=== PATIENT | male | born 1965 | race American Indian/Alaskan Native ===

== ENCOUNTER 2018-08-22 20:42 | Emergency (ER) | payer OTHER ==
[2018-08-22 21:02] VITALS: BMI 34.7
--- NOTE | 2018-08-22 21:24 | ED PDOC ---
Arrival/HPI <[place] - Last Filed: 08/22/18 21:34> - General Historian: Patient - History of Present Illness Narrative History of Present Illness (Text): 08/22/18 21:20 CC: worsening cough in past 10 days. HPI: 53 yo male w/ PMH of HTN, DM1, CAD comes to ED for evaluation of worsening cough in past 10 days. Patient states that he has this cough for a prolonged period of time ( says 2 years). Patient states he felt he had a fever today but recorded a temperature of 99. Patient reports that last night his coughing was so severe he had a 5 minute episode of vomiting. Today, when he was driving over to hospital once again he had such severe cough that he began to vomit. Denies sob, hernandez, chest pain, n/v, constipation or diarrhea, and dysuria. Rec ently had medication of valsartan switched to lisinopril. Time/Duration: > week Symptom Onset: Gradual Symptom Course: Worsening Severity Level: 8 Activities at Onset: Rest Context: Sitting <Joycelyn Oseguera - Last Filed: 08/22/18 22:48> - General Chief Complaint: Flu-like Symptoms Time Seen by Provider: 08/22/18 20:48 Past Medical History - Cardiac Hx Hypertension: Yes - Endocrine/Metabolic Hx Diabetes Mellitus Type 1: Yes - Psychiatric Hx Substance Use: No <Joycelyn Osegeura - Last Filed: 08/22/18 22:48> Family/Social History Family/Social History: No Known Family HX Smoking Status: Never Smoked Hx Alcohol Use: No Hx Substance Use: No <Joycelyn Oseguera - Last Filed: 08/22/18 22:48> Allergies/Home Meds <[place] - Last Filed: 08/22/18 21:34> <Joycelyn Oseguera - Last Filed: 08/22/18 22:48> Allergies/Adverse Reactions: Allergies No Known Allergies Allergy (Verified 08/22/18 21:02) Home Medications: Home Meds Medication Instructions Recorded Confirmed Lisinopril [Zestril] 20 mg PO DAILY 08/22/18 08/22/18 Review of Systems - Review of Systems Constitutional: Normal. absent: Fatigue, Weight Change Eyes: Normal ENT: Normal Respiratory: Cough, Sputum. absent: SOB, Wheezing Cardiovascular: Normal. absent: Chest Pain, Palpitations, Edema, HERNANDEZ Gastrointestinal: Vomiting. absent: Normal, Abdominal Pain, Stool Changes, Constipation, Diarrhea, Nausea Genitourinary Male: Normal. absent: Dysuria, Frequency Musculoskeletal: Normal. absent: Arthralgias, Myalgias Skin: Normal. absent: Rash, Pruritis, Skin Lesions Endocrine: Normal Hemo/Lymphatic: Normal Psychiatric: Normal <Joycelyn Oseguera - Last Filed: 08/22/18 22:48> Physical Exam Vital Signs Reviewed: Yes Temperature: Afebrile Blood Pressure: Normal Pulse: Tachycardic Respiratory Rate: Normal Appearance: Positive for: Well-Appearing, Non-Toxic, Comfortable Pain Distress: None Mental Status: Positive for: Alert and Oriented X 3 - Systems Exam Head: Present: Atraumatic, Normocephalic Pupils: Present: PERRL Extroacular Muscles: Present: EOMI Conjunctiva: Present: Normal Mouth: Present: Moist Mucous Membranes Neck: Present: Normal Range of Motion. No: Meningeal Signs, Paraspinal Tenderness, JVD Respiratory/Chest: Present: Clear to Auscultation, Good Air Exchange. No: Respiratory Distress, Accessory Muscle Use, Rhonchi Cardiovascular: Present: Normal S1, S2, Tachycardic. No: Murmurs Abdomen: Present: Normal Bowel Sounds. No: Tenderness, Distention, Peritoneal Signs Upper Extremity: Present: Normal Inspection. No: Cyanosis, Edema Lower Extremity: Present: Normal Inspection. No: Edema Neurological: Present: GCS=15, CN II-XII Intact, Speech Normal Skin: Present: Warm, Dry, Normal Color. No: Rashes Psychiatric: Present: Alert, Oriented x 3, Normal Insight, Normal Concentration <Joycelyn Oseguera - Last Filed: 08/22/18 22:48> Medical Decision Making ED Course and Treatment: Impression: Pt seen and evaluated with lead medical technologist. Aware and agree with HPI, clinical findings, plan, and management. Pt, whose past medical history includes hypertension, diabetes, and CAD, presented for worsening cough, subjective fever, and post-tussive vomiting. Plan: -- Labs -- CXR -- Reassess and disposition - RAD Interpretation Radiology Orders: 08/22/18 21:19 CXR (PA/LAT) [CHEST TWO VIEWS (PA/LAT)] [RAD] Stat <[place] - Last Filed: 08/22/18 21:34> ED Course and Treatment: 08/22/18 21:27 Impression 53 yo male w/ PMH of HTN, DM1, CAD comes to ED for evaluation of worsening cough in past 10 days. Patient states that he has this cough for a prolonged period of time ( says 2 years). Plan -CBC -CMP -Chest Xray Prior Visits No prior visits Progress Notes pending blood work and imaging Re-evaluation Time: 22:30 Reassessment Condition: Unchanged - Lab Interpretations Lab Results: 08/22/18 08/22/18 21:40 21:40 WBC 9.7 RBC 4.96 Hgb 14.4 Hct 42.2 MCV 85.1 MCH 29.0 MCHC 34.1 RDW 13.7 Plt Count 289 MPV 9.6 Neut % (Auto) 61.6 Lymph % (Auto) 27.6 Montgomery % (Auto) 7.6 H Eos % (Auto) 3.0 Baso % (Auto) 0.2 Lymph # (Auto) 2.7 Montgomery # (Auto) 0.7 H Eos # (Auto) 0.3 Baso # (Auto) 0.02 Absolute Neuts (auto) 6.00 Sodium 142 Potassium 4.5 Chloride 103 Carbon Dioxide 28 Anion Gap 15 BUN 16 Creatinine 0.9 Est GFR ( Amer) > 60 Est GFR (Non-Af Amer) > 60 Random Glucose 142 H Calcium 9.9 Total Bilirubin 0.3 AST 45 ALT 38 Alkaline Phosphatase 94 Total Protein 8.1 Albumin 4.3 Globulin 3.8 Albumin/Globulin Ratio 1.1 08/22/18 21:40 08/22/18 21:40 Lab Results 08/22/18 21:40: Sodium 142, Potassium 4.5, Chloride 103, Carbon Dioxide 28, Anion Gap 15, BUN 16, Creatinine 0.9, Est GFR ( Amer) > 60, Est GFR (Non- Af Amer) > 60, Random Glucose 142 H, Calcium 9.9, Total Bilirubin 0.3, AST 45, ALT 38, Alkaline Phosphatase 94, Total Protein 8.1, Albumin 4.3, Globulin 3.8, Albumin/Globulin Ratio 1.1 08/22/18 21:40: WBC 9.7, RBC 4.96, Hgb 14.4, Hct 42.2, MCV 85.1, MCH 29.0, MCHC 34.1, RDW 13.7, Plt Count 289, MPV 9.6, Neut % (Auto) 61.6, Lymph % (Auto) 27.6, Montgomery % (Auto) 7.6 H, Eos % (Auto) 3.0, Baso % (Auto) 0.2, Lymph # (Auto) 2.7, Montgomery # (Auto) 0.7 H, Eos # (Auto) 0.3, Baso # (Auto) 0.02, Absolute Neuts (auto) 6.00 Interpretation: All labs normal - EKG Interpretation Interpreted by ED Physician: Yes Type: 12 lead EKG <Joycelyn Oseguera - Last Filed: 08/22/18 22:48> - PA / OWNER ORAL SURGEON / Resident Statement STEPHANIE has reviewed & agrees with the documentation as recorded. / has examined the patient and agrees with the treatment plan. <[place] Arizmendi - Last Filed: 08/22/18 21:34> Disposition/Present on Arrival <Mich Arizmendi - Last Filed: 08/22/18 21:34> - Present on Arrival Any Indicators Present on Arrival: No History of DVT/PE: No History of Uncontrolled Diabetes: No Urinary Catheter: No History of Decub. Ulcer: No History Surgical Site Infection Following: None - Disposition Have Diagnosis and Disposition been Completed?: Yes Disposition Time: 22:47 Patient Plan: Discharge <Jocyelyn Oseguera - Last Filed: 08/22/18 22:48> - Disposition Diagnosis: Cough Condition: FAIR Additional Instructions: 1. Patient will need to followup with primary medical doctor for possible switching of blood pressure due to extended cough history 2. Patient will be covered for possible PNA due to clinical symptoms with a Z- pack and Robitussin w/ codeine Prescriptions: Azithromycin [Zithromax] 250 mg PO DAILY #6 tab Promethazine/Codeine [Codeine/Promethazine 10 MG/5 Ml-6.25 MG/5 Ml] 5 ml PO Q6 PRN #5 oz PRN Reason: Cough Forms: [employer] ([employer])
[2018-08-22 21:52] LABS: BASO # 0.02 K/mm3 (0.0-2.0); BASO % 0.2 % (0.0-3.0); EOS # 0.3 (0.0-0.7); HEMOGLOBIN 14.4 g/dL (14.0-18.0); LYMPH # 2.7 (1.2-3.4); LYMPH % 27.6 % (22.0-35.0); MEAN CELL VOLUME 85.1 fl (80.0-105.0); MEAN CORPUSCULAR HGB CONC 34.1 g/dl (31.0-37.0); MEAN PLATELET VOLUME 9.6 fl (7.0-11.0); MONO # 0.7 (0.1-0.6); MONO % 7.6 % (1.0-6.0); RBC 4.96 10^6/uL (3.5-6.1); RED CELL DISTRIBUTION WIDTH 13.7 % (11.5-14.5); WHITE BLOOD COUNT 9.7 10^3/uL (4.5-11.0)
[2018-08-22 22:01] LABS: ALB/GLOB RATIO 1.1 (1.1-1.8); ALBUMIN 4.3 g/dL (3.0-4.8); ALT/SGPT 38 U/L (7-56); AST/SGOT 45 U/L (17-59); BLOOD UREA NITROGEN 16 mg/dL (7-21); CALCIUM 9.9 mg/dL (8.4-10.5); GFR NON-AFRICAN AMERICAN > 60
[2018-08-22 22:13] VITALS: BP 132/85; PULSE 107; RESP 20; TEMP 97.5; O2SAT 97
--- NOTE | 2018-08-23 09:45 | RAD ---
Date of service: 08/22/2018 HISTORY: cough COMPARISON: No prior. TECHNIQUE: Chest PA and lateral views FINDINGS: LUNGS: No active pulmonary disease. PLEURA: No significant pleural effusion identified. No pneumothorax apparent. CARDIOVASCULAR: No aortic atherosclerotic calcification present. Normal cardiac size. No pulmonary vascular congestion. OSSEOUS STRUCTURES: No significant abnormalities. VISUALIZED UPPER ABDOMEN: Normal. OTHER FINDINGS: None. IMPRESSION: No active disease.
--- NOTE | 2018-08-23 13:22 | CARD ---
APPROVED REPORT Date of service: 08/22/2018 EKG Measurement Heart [id number] <Conclusion> Normal sinus rhythm Normal ECG
== END 2018-08-22 23:00 | disposition home or self-care (01) ==
LOC: ED 20:42
DX: R05 Cough (principal); I10 Essential (primary) hypertension; I25.10 Atherosclerotic heart disease of native coronary artery without angina pectoris; E10.9 Type 1 diabetes mellitus without complications